=== PATIENT | female | born 1970 | race Caucasian/White ===

== ENCOUNTER → 2016-12-20 | Outpatient (CLI) | payer OTHER | LOC: FIMAGING 09:03 | PROVIDERS: ATTEND Nurse Practitioner Women's Health | DX: Z12.31 Encounter for screening mammogram for malignant neoplasm of breast (principal) | CPT/HCPCS: G0202 ==

== ENCOUNTER → 2017-01-08 | Outpatient (CLI) | payer OTHER | LOC: FIMAGING 07:34 | PROVIDERS: ATTEND Urology | DX: Z13.89 Encounter for screening for other disorder (principal); N26.1 Atrophy of kidney (terminal); Q63.0 Accessory kidney ==

== ENCOUNTER → 2017-01-19 | Outpatient (CLI) | payer OTHER | LOC: FIMAGING 10:47 | PROVIDERS: ATTEND Nurse Practitioner Women's Health | DX: R92.8 Other abnormal and inconclusive findings on diagnostic imaging of breast (principal) ==

== ENCOUNTER → 2018-03-05 | Outpatient (CLI) | payer OTHER | LOC: FIMAGING 12:58 | PROVIDERS: ATTEND Urology | DX: Z87.448 Personal history of other diseases of urinary system (principal) | CPT/HCPCS: 78707; A9562 ==